=== PATIENT | male | born 1990 | race African-American/Black ===

== ENCOUNTER 2020-11-06 11:36 | Emergency (ER) | payer SELFPAY ==
[~2020-11-06] VITALS: Ht 167.6 cm; Wt 59.0 kg
--- NOTE | 2020-11-06 12:26 | PHYS DOC ---
General Adult EDM: Chief Complaint: SHORTNESS OF BREATH HPI: HPI: Patient is a 29 year old male who tested positive for Covid yesterday who presents with shortness of breath and chest pain. Has been worsening over the past several days. Chest pain is pressure-like and substernal. Does not radiate. Slightly worse with deep breaths. Not exertional. He has had increasing shortness of breath with cough. Also endorses fever/chills. No lower extremity edema. No sharp chest pain. Review of Systems: Review of Systems: Constitutional: + fever and chills [] Eyes: Denies change in visual acuity. [] HENT: Denies nasal congestion or sore throat. [] Respiratory: + cough and shortness of breath. [] Cardiovascular: + chest pain. no edema. [] GI: Denies abdominal pain, nausea, vomiting, bloody stools or diarrhea. [] : Denies dysuria. [] Musculoskeletal: Denies back pain or joint pain. [] Integument: Denies rash. [] Neurologic: Denies headache, focal weakness or sensory changes. [] Endocrine: Denies polyuria or polydipsia. [] Lymphatic: Denies swollen glands. [] Psychiatric: Denies depression or anxiety. [] Heart Score: C/O Chest Pain: Yes HEART Score for Chest Pain: HEART Score for Chest Pain Response (Comments) Value History Slighlty/Non-Suspicious 0 Age < 45 0 Risk Factors No Risk Factors 0 Total 0 Risk Factors: Risk Factors: DM, Current or recent (<one month) smoker, HTN, HLP, family history of CAD, obesity. Risk Scores: Score 0 - 3: 2.5% MACE over next 6 weeks - Discharge Home Score 4 - 6: 20.3% MACE over next 6 weeks - Admit for Clinical Observation Score 7 - 10: 72.7% MACE over next 6 weeks - Early Invasive Strategies Family History: Family History: No pertinent family hx Physical Exam: PE: Constitutional: Well developed, well nourished, no acute distress, non-toxic appearance. [] HENT: Normocephalic, atraumatic, bilateral external ears normal, oropharynx moist, no oral exudates, nose normal. [] Eyes: PERRLA, EOMI, conjunctiva normal, no discharge. [] Neck: Normal range of motion, no tenderness, supple, no stridor. [] Cardiovascular: Heart rate regular rhythm, no murmur [] Lungs & Thorax: Anxious appearing, hyperventilating. breath sounds clear and equal bilaterallyl. [] Abdomen: Bowel sounds normal, soft, no tenderness, no masses, no pulsatile masses. [] Skin: Warm, dry, no erythema, no rash. [] Extremities: No tenderness, no cyanosis, no clubbing, ROM intact, no edema. [] Neurologic: Alert and oriented X 3, normal motor function, normal sensory fu nction, no focal deficits noted. [] Psychologic: Anxious affect, judgement normal, mood normal. [] EKG: EKG: Sinus rhythm. Rate 52. Normal axis. Long QT 553. T wave inversions inferiorly and and V4. No ST elevations or depressions.. [] Radiology/Procedures: Radiology/Procedures: CXR [] Impression: [facility] [address] [place], [place] [id number] IMAGING REPORT Signed PATIENT: RICK BEAVER ACCOUNT: [id number] : 1990 LOCATION: ER AGE: 29 SEX: M EXAM STATUS: REG ER ORD. PHYSICIAN: RAJINDER DIGGS MD REASON: dyspnea, chest pain, COVID + PROCEDURE: CHEST AP ONLY Exam Date: 11/06/2020 12:21 PM XR CHEST 1V Indication: Reason: dyspnea, chest pain, COVID + / Spl. Instructions: / History: . FINDINGS/ IMPRESSION: The cardiac silhouette and pulmonary vasculature are within normal limits. There is no focal consolidation, pleural effusion or pneumothorax. The visualized osseous structures are intact. Electronically signed by: Kushal Nelson MD (11/06/2020 12:39 PM) [id number] DICTATED and SIGNED BY: KUSHAL NELSON MD DATE: 11/06/20 [id number] 0 Course & Med Decision Making: Course & Med Decision Making Pertinent Labs and Imaging studies reviewed. (See chart for details) Patient a 29-year-old male who is Covid positive who presents with chest pain shortness of breath. On arrival is afebrile, heart rate in the 60s-70s, normotensive, and satting 100% on room air. He does seem anxious appearing and hyperventilating initially. Lungs are clear to auscultation. We will check a chest x-ray for any signs of pneumonia. Will check labs and EKG for any signs of myocarditis or right heart strain. Will check dimer to attempt to exclude VTE. 1225 CXR clear ekg with twi in V4 and inferiorly, but troponin negative and reassuring given duration of symptoms. BMP and CBC unremarkable and he continues to sat well on RA. Awaiting Dimer to make final disposition. 1426 Dimer negative. 1503 Dragon Disclaimer: Dragon Disclaimer: This electronic medical record was generated, in whole or in part, using a voice recognition dictation system. Departure Departure Impression: Primary Impression: COVID-19 Disposition: HOME / SELF CARE / HOMELESS Condition: STABLE Referrals: NO PCP (PCP) Since you do not have a PCP, please call the number for the [facility] at [phone]. Additional Instructions: Your work-up today has been very reassuring. There is no signs of pneumonia on your chest x-ray. There is no signs of blood clot based on lab work. No evidence of damage to your heart. Please continue to treat your symptoms such as fever/chills with Tylenol/ibuprofen. These keep on otrp-diu-eelmhog. If you develop worsening shortness of breath, chest pain, other new/concerning symptoms you can return to the emergency department for reevaluation at any time. RAJINDER DIGGS MD Nov 06, 2020 12:26
--- NOTE | 2020-11-06 12:41 | RAD ---
Exam Date: 11/06/2020 12:21 PM XR CHEST 1V Indication: Reason: dyspnea, chest pain, COVID + / Spl. Instructions: / History: . FINDINGS/ IMPRESSION: The cardiac silhouette and pulmonary vasculature are within normal limits. There is no focal consolidation, pleural effusion or pneumothorax. The visualized osseous structures are intact. Electronically signed by: Darren Nelson MD (11/06/2020 12:39 PM) [id number]
[2020-11-06 13:24] LABS: BASO # 0.1 x10^3/uL (0.0-0.2); BASO % 1 % (0-3); EOS % 0 % (0-3); HEMATOCRIT 45.8 % (39.0-53.0); HEMOGLOBIN 15.5 g/dL (13.0-17.5); LYMPH # 0.4 x10^3/uL (1.0-4.8); LYMPH % 6 % (24-48); MEAN CORPUSCULAR HEMOGLOBIN 29 pg (25-35); MEAN CORPUSCULAR HGB CONC 34 g/dL (31-37); MEAN CORPUSCULAR VOLUME 86 fL (79-100); MONO # 0.6 x10^3/uL (0.0-1.1); MONO % 9 % (0-9); NEUT # 5.5 x10^3/uL (1.8-7.7); NEUT % 85 % (31-73); PLATELET COUNT 179 x10^3/uL (140-400); RED BLOOD COUNT 5.33 x10^6/uL (4.30-5.70); RED CELL DISTRIBUTION WIDTH 14.3 % (11.5-14.5); WHITE BLOOD COUNT 6.5 x10^3/uL (4.0-11.0)
--- NOTE | 2020-11-06 13:29 | EKG ---
[facility] [address] [place] [address] Test Date: 2020-11-06 Test Time: 13:11:24 Pat Name: RICK BEAVER Department: Room: Gender: M [employer]: : 1990 Requested By: RAJINDER DIGGS Order Number: [id number] Reading MD: Measurements Intervals [place] Rate: 52 P: 62 HI: 136 QRS: 55 QRSD: 84 T: 12 QT: 592 QTc: 553 Interpretive Statements SINUS RHYTHM T ABNORMALITY IN ANTERIOR LEADS PROLONGED QT ABNORMAL ECG RI6.02 No previous ECG available for comparison
[2020-11-06 13:35] LABS: CALCIUM 9.1 mg/dL (8.5-10.1); CREATININE 1.2 mg/dL (0.7-1.3); GFR 87.2; POTASSIUM 3.4 mmol/L (3.5-5.1)
[2020-11-06 15:40] VITALS: BP 134/78
== END 2020-11-06 15:40 | disposition home or self-care (01) ==
LOC: ER 11:36
DX: U07.1 COVID-19 (principal)
CPT/HCPCS: 36415; 71045; 80048; 84484; 85025; 85379; 93005; 99285-25